=== PATIENT | male | born 1985 | race African-American/Black ===

== ENCOUNTER 2023-11-29 00:35 | Emergency (ER) | payer MEDICAID, OTHER ==
[~2023-11-29] VITALS: Ht 167.6 cm; Wt 85.0 kg
[2023-11-29 00:42] VITALS: O2SAT 99
[2023-11-29 01:16] VITALS: BP 142/75; PULSE 69; RESP 19; TEMP 98
[2023-11-29] MEDS: CHLORDIAZEPOXIDE 25MG CAPSULE PO NR (01:29)
[2023-11-29] MEDS: CHLORDIAZEPOXIDE 25MG CAPSULE PO ONE (01:29)
== END 2023-11-29 01:44 ==
LOC: ER 00:35
DX: Z76.89 Persons encountering health services in other specified circumstances (principal); I10 Essential (primary) hypertension; F12.90 Cannabis use, unspecified, uncomplicated; F10.20 Alcohol dependence, uncomplicated; Y90.9 Presence of alcohol in blood, level not specified
CPT/HCPCS: 99283